=== PATIENT | male | born 1950 | race Caucasian/White ===

== ENCOUNTER 2018-10-27 08:13 | Day surgery (SDC) | payer MEDICARE, OTHER ==
[~2018-10-27] VITALS: Ht 180.3 cm; Wt 98.7 kg
[~2018-10-27 08:13] MED LIST: BENAZEPRIL; CHLORTHALIDONE; NAPR-985 PO
[2018-10-27 08:51] VITALS: Ht 180.3 cm; Wt 98.7 kg
[2018-10-27 09:16] VITALS: BP 142/83; PULSE 52; RESP 18
[2018-10-27] MEDS ORDERED: PROPOFOL 200 MG INJ ONE (09:35)
[2018-10-27] MEDS ORDERED: LIDOCAINE 2% (SDV) 5 ML INJ ONE (09:36)
[2018-10-27] MEDS ORDERED: MIDAZOLAM 1 MG/ML 2 ML INJ ONE (09:36)
[2018-10-27] MEDS ORDERED: PROPOFOL 40 ML ONE (09:36)
--- NOTE | 2018-10-27 09:38 | PREAC ---
Date/Time of Note Date/Time of Note DATE: 10/27/18 TIME: 09:37 Anesthesia Eval and Record Evaluation Time Pre-Procedure Interview DATE: 10/27/18 TIME: 09:37 Age 68 Sex male NPO: 8 hrs Preoperative diagnosis screen Planned procedure colonocopy Past Medical History Past Medical History: Includes Cardio: HTN Surgery & Anesthesia Issues No known issue Meds Anticoagulation: No Beta La within 24 hr: No Reason Beta La not given: Pt. not on B-La Active Scripts Naproxen* (Naprosyn*) 500 Mg Tablet, 500 MG PO BID PRN for PAIN AND/OR INFLAMMATION, #30 TAB Prov:JOHN VILLA PA-C 03/03/16 Reported Medications [Chlorthalidone] No Conflict Check 10/27/18 [Benazepril] No Conflict Check 10/27/18 Meds reviewed: Yes Allergies Coded Allergies: No Known Drug Allergies (Verified Allergy, Unknown, 03/03/16) Allergies Reviewed: Yes Labs/Studies Labs Reviewed: Reviewed by anesthesiologist test: N/A Pre-procedure Exam Last vitals Vital Signs Date Temp Pulse Resp B/P (MAP) Pulse Ox O2 O2 Flow FiO2 Time Delivery Rate 10/27/18 98.3 52 18 142/83 100 Room Air 09:16 (102) Airway: Adequate mouth opening, Adequate thyromental dist Mallampati: Mallampati IV Teeth: Normal Lung: Normal Heart: Normal ASA Physical Status ASA physical status: 2 Emergency: None Pre-operative Attestations Prior to commencing anesthesia and surgery, the patient was re-evaluated, there was verification of: *The patient's identity *The results of appropriate recent lab work and preoperative vital signs *The above evaluation not changing prior to induction *Anesthetic plan, risk benefits, alternative and complications discussed with p atient/family; questions answered; patient/family understands, accepts and wishes to proceed. PADMINI RIDER DO Oct 27, 2018 09:38
--- NOTE | 2018-10-27 10:07 | PAC ---
Date/Time of Note Date/Time of Note DATE: 10/27/18 TIME: 10:06 Post-Anesthesia Notes Post-Anesthesia Note Last documented vital signs Vital Signs Date Temp Pulse Resp B/P (MAP) Pulse Ox O2 O2 Flow FiO2 Time Delivery Rate 10/27/18 98 60 18 105/60 100 Room Air 1000 Activity: WNL Respiratory function: WNL Cardiovascular function: WNL Mental status: Baseline Pain reasonably controlled: Yes Hydration appropriate: Yes Nausea/Vomiting absent: Yes PADMINI RIDER DO Oct 27, 2018 10:07
[2018-10-27 10:31] VITALS: BP 110/78; RESP 20
== END 2018-10-27 12:57 | disposition home or self-care (01) ==
LOC: GIL 08:13
PROVIDERS: ATTEND Internal Medicine Gastroenterology
DX: Z12.11 Encounter for screening for malignant neoplasm of colon (principal); D12.2 Benign neoplasm of ascending colon; K64.4 Residual hemorrhoidal skin tags; K64.8 Other hemorrhoids; I10 Essential (primary) hypertension
CPT/HCPCS: 45380; 88305; J2250